=== PATIENT | female | born 1980 | race Caucasian/White ===

== ENCOUNTER 2019-10-26 08:13 | Emergency (ER) | payer MEDICAID ==
[~2019-10-26] VITALS: Ht 165.1 cm; Wt 102.7 kg
--- NOTE | 2019-10-26 08:28 | NUR ---
ASSUMED CARE OF PT AT THIS TIME FROM TRIAGE. AMBULATORY TO ROOM WITH STEADY GAIT WITH SIGNIFICANT OTHER. 39 Y/O F PRESENTS STATING "PAIN IN MY LEFT ARM FOR 1 WEEK, SOMETIMES MY FINGER TIPS FEELING NUMB AND TINGLING AND IT WILL GO UP FROM THERE TO MY ELBOW, THE PAIN, N/T GOES AWAY IF I HOLD MY ARM ABOVE MY HEAD." CMS AND NEURO INTACT. RADIAL PULSE NORMAL AND STRONG. +ROM. CAP REFILL <3 SECONDS. SKIN PWD. DENIES ANY INJURY OR TRAUMA. CONT PULSE OX, BP MONITORS APPLIED. VSS. A&OX4. ERP DR. ELLISON AT BEDSIDE FOR EVALUATION. AWAITING ORDERS. CALL LIGHT IN REACH. FALL PRECAUTIONS IN PLACE.
--- NOTE | 2019-10-26 08:55 | NUR ---
PT IN RAD
--- NOTE | 2019-10-26 09:13 | NUR ---
PT BACK FROM RAD. NAD NOTED. VSS. CMS AND NEURO INTACT. AWAITING RAD RESULTS AND RECHECK
--- NOTE | 2019-10-26 09:33 | NUR ---
PT AMBUALTORY TO RESTROOM WITH STEADY GAIT. RESTING IN POSITION OF COMFORT ON ED GURNEY. AWAITING RECHECK FROM ERP. VSS. CALL LIGHT IN REACH. FALL PRECUATIONS IN PLACE. CMS AND NEURO INTACT
[2019-10-26 09:46] VITALS: BP 114/70
== END 2019-10-26 09:48 | disposition home or self-care (01) ==
LOC: ED 08:37
DX: M79.602 Pain in left arm (principal); R20.0 Anesthesia of skin; F17.210 Nicotine dependence, cigarettes, uncomplicated
CPT/HCPCS: 72050; 99283

== ENCOUNTER 2019-11-06 18:49 | Emergency (ER) | payer MEDICAID ==
[~2019-11-06] VITALS: Ht 165.1 cm; Wt 105.0 kg
--- NOTE | 2019-11-06 19:01 | NUR ---
PATIENT ARRIVES WTIH ABCESS TO RIGHT ELBOW THAT BEGAN THREE DAYS AGO. ITS SWOLLEN, RED, WARM TO TOUCH, BLANCHING.
[2019-11-06] MEDS ORDERED: LIDOCAINE-MPF 1%, 5ML INFIL ONE (19:30)
[2019-11-06] MEDS ORDERED: LIDOCAINE-MPF 1%, 5ML ONE (19:37)
--- NOTE | 2019-11-06 19:41 | NUR ---
SET UP FOR I AND D. PATIENT LIDOCAINE FOR PROVIDER FROM [employer]. GOT PATIENT WATER.
[2019-11-06 20:14] VITALS: BP 123/78
--- NOTE | 2019-11-06 20:15 | NUR ---
REVIEWED WOUND CARE. SHOWS UNDESTANDING.
--- NOTE | 2019-11-06 20:31 | NUR ---
DRESSING TO WOUND.
== END 2019-11-06 20:32 | disposition home or self-care (01) ==
LOC: ED 20:25
DX: L02.413 Cutaneous abscess of right upper limb (principal); M79.631 Pain in right forearm; F15.10 Other stimulant abuse, uncomplicated; F17.200 Nicotine dependence, unspecified, uncomplicated; Z72.9 Problem related to lifestyle, unspecified
CPT/HCPCS: 10060; 99283